=== PATIENT | female | born 1985 | race Caucasian/White ===

== ENCOUNTER → 2023-04-12 13:43 | Outpatient (CLI) | payer OTHER, SELFPAY ==
--- NOTE | 2023-04-12 | DI.ECHO.S_ITS ---
[facility] +---------+ : : [address] : : : : [id number] : : : : Phone: [phone]---------+ Echocardiogram Report + + :Name: DULCE SALES Study Date: 04/12/2023 Height: 64 in : :[facility] ReadingLocation: Weight: 125 lb : : Gender: Female BSA: 1.6 m2 : :: 1985 Age: 37 yrs BP: 111/72 mmHg: :Reason For Study: Arrhythmia, PACs : : Performed By: Corin Garrido : :Referring: SUSIE CHEN : + + Interpretation Summary The patient was in normal sinus rhythm during the exam. The patient had frequent PACs during the exam. The left ventricle is normal in size and wall thickness. Left ventricular ejection fraction is estimated to be 50 +/- 5%. Diastolic parameters suggest probable normal left ventricular diastolic function and normal filling pressures. The right ventricle is normal size. The right ventricular systolic function is normal. No significant valvular pathology seen. The IVC is dilated (diameter is greater than 2.1 cm) yet it collapses greater than 50% with a sniff. This suggests a right atrial pressure of 8 mm Hg. Procedure: A two-dimensional transthoracic echocardiogram with color flow and Doppler was performed. The study quality was technically good. There is no prior echocardiogram noted for this patient. The heart rate ranged between 74- 85 bpm during the study. The patient was in normal sinus rhythm during the exam. The patient had frequent PACs during the exam. Left Ventricle: The left ventricle is normal in size and wall thickness. There is no thrombus. Left ventricular ejection fraction is estimated to be 50 +/- 5%. No obvious regional wall motion abnormalities however during PACs, LV dyssynchrony seen. Diastolic parameters suggest probable normal left ventricular diastolic function and normal filling pressures. Right Ventricle: The right ventricle is normal size. The right ventricular systolic function is normal. Atria: The left atrium is mildly dilated. Right atrial size is normal. The interatrial septum grossly appears intact with no obvious evidence for an atrial septal defect. Mitral Valve: The mitral valve is normal. There is trace mitral regurgitation. Aortic Valve: The aortic valve is trileaflet. The aortic valve opens well. There is no aortic valve stenosis. No aortic regurgitation is present. Tricuspid Valve: The tricuspid valve leaflets are thin and pliable. The right ventricular systolic pressure is estimated to be at least 22 mmHg based on an estimated right atrial pressure of 8 mm Hg. There is trace tricuspid regurgitation. Pulmonic Valve: The pulmonic valve is not well seen, but is grossly normal. There is a trace or physiologic amount of pulmonic regurgitation. Great Vessels: The aortic root is normal size. The ascending aorta could not be visualized. The aortic arch is normal in size. The IVC is dilated (diameter is greater than 2.1 cm) yet it collapses greater than 50% with a sniff. This suggests a right atrial pressure of 8 mm Hg. Pericardium/ Pleura There is no pericardial effusion. There is no pleural effusion. MMode/2D Measurements & Calculations LVIDd: 4.8 cm LVOT diam: 2.1 cm LVIDs: 3.5 cm Ao root diam: 3.1 cm FS: 25.9 % Ao Arch Diam (Prox Trans): 2.3 cm EPSS: 0.27 cm IVSd: 0.77 cm LVPWd: 0.53 cm LV pelaez. diameter/BSA (cm/m^2): 3.0 LV sys. diameter/BSA (cm/m^2): 2.2 LA A2 area: 22.5 cm2 RA long axis: 4.3 cm LA A4 area: 17.6 cm2 RA area: 13.3 cm2 LA length (vol): 5.2 cm RA vol: 34.6 ml LA vol: 64.3 ml RA : 21.6 ml/m2 LA vol index: 40.1 ml/m2 IVC diam: 2.8 cm RVD1 (basal): 2.1 cm TAPSE: 2.4 cm Doppler Measurements & Calculations Ao V2 max: 110.6 cm/sec LVOT Max Cole: 91.6 cm/sec Ao V2 mean: 77.9 cm/sec LV V1 max P.4 mmHg Ao max P.9 mmHg LV V1 VTI: 17.5 cm Ao mean P.7 mmHg CARMEN(I,D): 2.7 cm2 Ao V2 VTI: 23.1 cm CARMEN(V,D): 3.0 cm2 sev ratio: 0.76 CARMEN indexed to BSA (cm^2/m^2): 1.7 MV E max cole: 73.2 cm/sec TR max cole: 189.6 cm/sec MV A max cole: 32.2 cm/sec TR max P.4 mmHg MV E/A: 2.3 PA V2 max: 68.4 cm/sec Med Peak E' Cole: 10.5 cm/sec PA V2 mean: 45.4 cm/sec E/E' med: 7.0 PA mean P.95 mmHg Lat Peak E' Cole: 15.4 cm/sec E/E' lat: 4.7 E/e' average: 5.9 MV dec time: 0.21 sec SV(LVOT): 62.5 ml Reading Physician:04:35 PM
[2023-04-12 17:28] LABS: Add Manual Diff / Slide Review NO; Basophils Absolute Auto 100 /uL (0-100); Basophils Percent Auto 0.9 % (0-2); Eosinophils Absolute Auto 200 /uL (0-450); Eosinophils Percent Auto 3.6 % (2-4); Hematocrit 38.5 % (36-46); Hemoglobin 13.3 g/dL (12.0-16.0); Lymphocytes Absolute Auto 2000 /uL (1100-4500); Lymphocytes Percent Auto 32.9 % (25-40); Mean Corpuscular HGB Conc 34.5 % (30-36); Mean Corpuscular Hemoglobin 29.8 PG (26-34); Mean Corpuscular Volume 86.3 fL (80-100); Monocytes Absolute Auto 400 /uL (0-900); Monocytes Percent Auto 6.2 % (3-14); Neutrophils Absolute Auto 3400 /uL (1500-7000); Neutrophils Percent Auto 56.4 % (50-75); Platelet Count 261 X10^3/uL (150-400); Red Blood Cell Count 4.46 X10^6/uL (4.0-5.2); Red Cell Distribution Width 12.1 % (11.6-14.8)
[2023-04-12 17:45] LABS: Alanine Aminotransferase 22 IU/L (<35); Albumin 4.7 g/dL (3.5-5.0); Albumin Globulin Ratio 1.4 (1.0-2.8); Alkaline Phosphatase 41 U/L (38-126); Aspartate Aminotransferase 30 IU/L (14-36); Bilirubin Total 0.6 mg/dL (0.2-1.3); Blood Urea Nitrogen 13 mg/dL (7-17); Calcium 9.6 mg/dL (8.4-10.2); Carbon Dioxide 30 mmol/L (22-32); Chloride 102 mmol/L (98-107); Estimated Glomerular Filt Rate > 60 mL/min (>60); Globulin 3.4 g/dL (1.7-4.1); Glucose 98 mg/dL (70-100); HEMOLYSIS < 15 (0-50); Magnesium 2.2 mg/dL (1.6-2.3); Potassium 3.5 mmol/L (3.4-5.1); Sodium 140 mmol/L (137-145); Total Protein 8.1 g/dL (6.3-8.2)
[2023-04-12 18:12] LABS: Thyroid Stimulating Hormone 1.53 uIU/mL (0.47-4.68)
--- NOTE | 2023-04-16 11:47 | DI.NM.S_ITS ---
DATE OF SERVICE: 04/12/2023 PROCEDURE: Exercise treadmill stress test without imaging. ORDERING PROVIDER: Miesha Horan MD INDICATIONS: The patient is a 37-year-old female with a history of palpitations and dizziness and documented frequent PACs. FINDINGS: 1. The patient was able to exercise for 11 minutes and 28 seconds on a standard Jose Luis protocol suggesting very good exercise capacity with an DEREK of -25%, achieving 12.8 METS. 2. She had a normal heart rate and blood pressure response to exercise, achieving a maximum heart rate of 189 BPM (103% of her predicted maximum). 3. She had no chest discomfort or anginal symptoms. 4. Her resting ECG showed sinus rhythm with frequent PACs and rare PVCs or aberrantly conducted PACs. ST segments were normal. With stress, she continued to have occasional PACs although improving in frequency with exercise but returning in recovery. There were no sustained arrhythmias. There were no significant ST-segment shifts with stress. IMPRESSION: 1. Normal exercise treadmill stress test for ischemia. 2. Very good exercise capacity without angina. She has frequent PACs with possible PVCs versus aberrantly conducted PACs at rest. These generally improved with exercise and returned in recovery, but without complex arrhythmias or sustained arrhythmias. Alexandrea Sarah - RS/contreras/MAXIMILIAN doc#: [id number]/job#: [id number] dd: 04/12/2023 17:22:00 dt: 04/13/2023 01:12:00 DICTATING MD/COPIES TO: Sergio Gil MD; Miesha Horan MD COPIES MNE: ELLIS;
== END ==
PROVIDERS: PCP Nurse Practitioner Acute Care; Referring Provider Internal Medicine Cardiovascular Disease; Visit Provider Internal Medicine Cardiovascular Disease
DX: I49.1 Atrial premature depolarization (principal); I49.3 Ventricular premature depolarization; R00.2 Palpitations
CPT/HCPCS: 36415; 80053; 83735; 84443; 85025; 93017; 93306